=== PATIENT | female | born 1960 | race African-American/Black ===

== ENCOUNTER 2017-09-14 10:10 | Emergency (ER) | payer BC ==
[~2017-09-14] VITALS: Ht 165.1 cm; Wt 68.9 kg
--- NOTE | 2017-09-14 10:35 | NUR ---
LEFT KNEE PAIN X 7 DAYS, DENIES FALL OR LOC. A/OX 4. BREATHING EVEN AND UNLABORED. NO SOB. VITALS STABLE. SAFETY AND COMFORT MEASURES IN PLACE. AWAITING MD ORDERS.
[2017-09-14] MEDS ORDERED: IBUPROFEN 600 MG TABLET PO ONE ×2 (11:12→11:30)
--- NOTE | 2017-09-14 11:14 | NUR ---
PATIENT MEDICATED PER MD ORDERS.
[2017-09-14] MEDS ORDERED: LIDOCAINE /MPF 1% VIAL 5 ML VIAL ONE (11:57)
[2017-09-14] MEDS ORDERED: LIDOCAINE /MPF 1% VIAL 5 ML VIAL TP ONE (12:00)
--- NOTE | 2017-09-14 12:45 | NUR ---
AT BEDSIDE FOR LEFT KNEE SYNOVIAL FLUID ASPIRATION. SPECIMEN COLLECTED AND SENT TO LAB.
[2017-09-14 15:35] VITALS: BP 111/68
== END 2017-09-14 15:37 | disposition home or self-care (01) ==
LOC: ER 10:12
DX: M25.462 Effusion, left knee (principal); M17.9 Osteoarthritis of knee, unspecified
CPT/HCPCS: 20610; 36415; 73564; 87070; 87075; 89051; 89060; 99285; A4606; J3490; Z7610

== ENCOUNTER 2019-08-27 21:36 | Emergency (ER) | payer BC, MEDICAID ==
[~2019-08-27] VITALS: Ht 165.1 cm; Wt 73.5 kg
--- NOTE | 2019-08-27 21:39 | NUR ---
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
--- NOTE | 2019-08-27 22:27 | NUR ---
NESSA INITIATED. BLOOD DRAWN AND GIVEN TO LAB.
[2019-08-27] MEDS ORDERED: LIDOCAINE VISCOUS 2% UD 15 ML UDC ONE (22:29)
[2019-08-27] MEDS ORDERED: MAG HYDROX/AL HYDROX/SIMETH 30 ML UDC ONE (22:29)
[2019-08-27 22:30] LABS: BASOPHILS % (AUTO) 0.6 % (0.0-2.0); EOSINOPHILS % (AUTO) 2.7 % (0.0-6.0); HEMATOCRIT 38 % (33-45); HEMOGLOBIN 13.1 g/dL (11.5-14.8); LYMPHOCYTES # (AUTO) 1.7 /CMM (0.8-4.8); LYMPHOCYTES % (AUTO) 33.7 % (20.0-44.0); MEAN CORPUSCULAR HGB CONC 35 g/dl (31.0-36.0); MEAN CORPUSCULAR VOLUME 89 fL (82-100); MONOCYTES # (AUTO) 0.6 /CMM (0.1-1.30); MONOCYTES % (AUTO) 12.2 % (2.0-12.0); NEUTROPHILS # (AUTO) 2.6 /CMM (1.8-8.9); NEUTROPHILS % (AUTO) 50.8 % (43.0-81.0); PLATELET COUNT (AUTO) 281 /CMM (150-450); RED BLOOD CELL COUNT(AUTO) 4.24 MIL/uL (4.0-5.2)
[2019-08-27] MEDS ORDERED: MAG HYDROX/AL HYDROX/SIMETH 30 ML UDC PO ONE (22:30)
[2019-08-27] MEDS ORDERED: LIDOCAINE VISCOUS 2% UD 15 ML UDC MM ONE (22:30)
[2019-08-27 23:04] LABS: BILIRUBIN,DIRECT 0.1 mg/dL (0.0-0.2); BILIRUBIN,TOTAL 0.4 mg/dL (0.2-1.0); CARBON DIOXIDE 28 mmol/L (21-32); CHLORIDE 107 mmol/L (98-107); CREATININE 1.1 mg/dL (0.6-1.3); GLUCOSE 98 mg/dL (74-106); POTASSIUM 3.7 mmol/L (3.5-5.1); SODIUM SERUM 143 mmol/L (136-145); UREA NITROGEN, BLOOD 9 mg/dL (7-18)
[2019-08-27 23:05] LABS: ALANINE AMINOTRANSFERASE 13 U/L (12-78); ALBUMIN 3.4 g/dL (3.4-5.0); ALKALINE PHOSPHATASE 63 U/L (46-116); ASPARTATE AMINOTRANSFERASE 16 U/L (15-37); TOTAL PROTEIN, SERUM 7.1 g/dL (6.4-8.2)
[2019-08-27 23:39] VITALS: BP 150/74
--- NOTE | 2019-08-28 00:18 | NUR ---
Patient discharged to home in stable condition. Written and verbal after care instructions given. Patient verbalizes understanding of instruction.IV removed. Catheter intact and site benign. Pressure and 4x4 applied to site. No bleeding noted.
== END 2019-08-28 00:20 | disposition home or self-care (01) ==
LOC: ER 21:39
DX: R10.13 Epigastric pain (principal)
CPT/HCPCS: 36415; 71045-TC; 76705-TC; 80048-TC; 80076-TC; 84484-TC; 85025-TC; 85730-TC